=== PATIENT | male | born 1995 | race Asian ===

== ENCOUNTER 2022-02-03 13:34 | Emergency (ER) | payer OTHER ==
[2022-02-03 13:51] VITALS: BP 139/68
--- NOTE | 2022-02-03 14:24 | ED Physician Documentation ---
PD HPI UPPER EXT INJURY - Stated complaint Stated Complaint: LT WRIST INJ - Chief complaint Chief Complaint: Trauma Ext - History obtained from History obtained from: Patient - History of Present Illness Location: Left, Wrist Pain level max: 3 Pain level now: 2 - Additonal information Additional information: Patient is a 26-year-old male who presents to the emergency department with left wrist pain. This started after playing softball yesterday. Does not recall any specific injury. Worse with movement, better with rest. No swelling. No numbness or tingling. Patient is [employer]. Patient is right-handed Review of Systems Constitutional: denies: Fever, Chills GI: denies: Vomiting, Diarrhea Neurologic: denies: Head injury PD PAST MEDICAL HISTORY - Past Medical History Past Medical History: No - Past Surgical History Past Surgical History: No - Present Medications Home Medications: Ambulatory Orders Medication Instructions Recorded Confirmed No Known Home Medications 02/03/22 02/03/22 - Allergies Allergies/Adverse Reactions: Allergies Allergy/AdvReac Type Severity Reaction Status Date / Time No Known Drug Allergies Allergy Verified 02/03/22 13:47 PD ED PE NORMAL - Vitals Vital signs reviewed: Yes - General General: Alert and oriented X 3, No acute distress - HEENT HEENT: Moist mucous membranes - Derm Derm: Warm and dry - Extremities Extremities: Other (L wrist - No bony tenderness about the left wrist. Neurovascular intact. No tenderness over the anatomical snuffbox. There is pain with Flexion and extension of the wrist.) - Neuro Neuro: Alert and oriented X 3 Results - Vitals Vitals: Vital Signs - 24 hr 02/03/22 13:47 Temperature 36.1 C L Heart Rate 57 L Respiratory 16 Rate Blood Pressure 139/68 H O2 Saturation 99 Oxygen O2 Source Room air - Rads (name of study) Left wrist x-ray Radiology: Final report received, EMP read contemporaneously, See rad report (No acute abnormality) PD MEDICAL DECISION MAKING - ED course Complexity details: reviewed results, considered differential, d/w patient ED course: Patient with what appears to be a left wrist sprain. Placed in a Velcro splint for comfort. Negative x-ray. We will have him follow-up with his doctor in 1 week if he is still symptomatic. Patient counseled regarding signs and symptoms for which I believe and urgent re-evaluation would be necessary. Patient with good understanding of and agreement to plan and is comfortable going home at this time This document was made in part using voice recognition software. While efforts are made to proofread this document, sound alike and grammatical errors may occur. Departure - Departure Disposition: 01 Home, Self Care Clinical Impression: Left wrist sprain Qualifiers: Encounter type: initial encounter Qualified Code(s): S63.502A - Unspecified sprain of left wrist, initial encounter Condition: Good Instructions: ED Sprain Wrist Follow-Up: CHARLY Merlos [Provider Group] - Within 1 week Comments: Your x-ray does not show any acute abnormalities today. [place] 1 [place]. Wear the splint as needed for comfort. You can use Motrin or Tylenol as needed for pain. Discharge Date/Time: 02/03/22 14:30
--- NOTE | 2022-02-03 14:29 | XRAY Report ---
PROCEDURE: Wrist 4 View LT INDICATIONS: Trauma TECHNIQUE: 4 views of the wrist were acquired. COMPARISON: None FINDINGS: Bones: No fractures or dislocations. No suspicious bony lesions. Scaphoid view: No scaphoid fractures are seen. Soft tissues: No suspicious soft tissue calcifications. IMPRESSION: No displaced fractures are seen on these plain films. If there is snuffbox tenderness (or other clinical concern for a fracture not seen on these images) p lease consider a dedicated CT study or a short-term follow-up plain film series, following splinting. Reviewed by: Angel King MD on 02/03/2022 1:28 PM [facility] Approved by: Angel King MD on 02/03/2022 1:28 PM [facility]ERY Station ID: [id number]
== END 2022-02-03 14:30 | disposition home or self-care (01) ==
LOC: ED 13:34
DX: S69.92XA Unspecified injury of left wrist, hand and finger(s), initial encounter (principal); X58.XXXA Exposure to other specified factors, initial encounter; Y93.64 Activity, baseball
CPT/HCPCS: 99282; 99283